=== PATIENT | female | born 1995 | race Asian ===

== ENCOUNTER 2021-07-12 15:41 | Emergency (ER) | payer OTHER, MEDICAID, SELFPAY ==
[2021-07-12 15:53] VITALS: BP 128/80; PULSE 96; RESP 12; TEMP 36.5; O2SAT 98; BMI 41.5
[2021-07-12 16:44] LABS: COVID19 -Nasal RAPID Negative (Negative)
== END 2021-07-12 17:32 | disposition left against medical advice (07) ==
PROVIDERS: Emergency Provider Emergency Medicine
DX: Z53.21 Procedure and treatment not carried out due to patient leaving prior to being seen by health care provider (principal); Z20.822 Contact with and (suspected) exposure to COVID-19
CPT/HCPCS: 87635; 99281; C9803